=== PATIENT | female | born 1945 | race African-American/Black ===

== ENCOUNTER 2016-08-25 10:34 | Emergency (ER) | payer MEDICARE, MEDICAID ==
[~2016-08-25] VITALS: Ht 167.6 cm; Wt 104.0 kg
[~2016-08-25 10:34] MED LIST: AMLO10TA4 PO; ATEN50TA PO; BENA40TA3 PO; FLUT1DIS3 IH; IBUPROFEN; NAPR60CR2; OMEP40CA34 PO; SIMV40TA2 PO
[2016-08-25 11:17] VITALS: BP 169/63
[2016-08-25 12:30] LABS: GLUCOSE URINE NEGATIVE (NEGATIVE); KETONES URINE NEGATIVE (NEGATIVE); LEUKOCYTE ESTERASE URINE NEGATIVE (NEGATIVE); NITRITE URINE NEGATIVE (NEGATIVE); OCCULT BLOOD URINE NEGATIVE (NEGATIVE); PH URINE 5.5 (4.5-8.0); PROTEIN URINE 2+ (NEGATIVE); SPECIFIC GRAVITY URINE 1.019 (1.005-1.030); UROBILINOGEN URINE 0.2 E.U./dL (0.2-1.0)
[2016-08-25 12:31] LABS: CLARITY URINE CLOUDY (CLEAR); COLOR URINE YELLOW (YELLOW)
[2016-08-25 12:40] LABS: BACTERIA URINE TRACE; HYALINE CASTS URINE 0-5 /lpf; RBC URINE 0-2 /hpf (0-2); SQUAMOUS EPITHELIAL CELL URINE FEW /lpf (RARE/1+); WBC URINE 0-2 /hpf (0-2)
== END 2016-08-25 13:27 | disposition home or self-care (01) ==
LOC: ER 12:38
DX: R80.9 Proteinuria, unspecified (principal); M54.5 Low back pain; E78.00 Pure hypercholesterolemia, unspecified; I10 Essential (primary) hypertension; Z79.1 Long term (current) use of non-steroidal anti-inflammatories (NSAID); Z79.899 Other long term (current) drug therapy
CPT/HCPCS: 81001; 99283

== ENCOUNTER 2019-04-07 07:12 | Inpatient (IN) | payer MEDICARE, MEDICAID ==
[~2019-04-07] VITALS: Ht 167.6 cm; Wt 99.8 kg
[~2019-04-07 07:12] MED LIST changes: -BENA40TA3 PO; +BENA40TA9 PO
[2019-04-07] MEDS ORDERED: ASPIRIN 81MG TABLET PO ONE (08:30)
[2019-04-07 08:46] LABS: BASOPHILS % 0.8 % (0.0-2.0); EOSINOPHILS % 3.8 % (0.0-5.0); HEMATOCRIT. 39.7 % (36.0-48.0); HEMOGLOBIN. 12.6 g/dL (12.0-16.0); LYMPHOCYTES % 25.8 % (20.0-50.0); MEAN CORPUSCULAR HEMOGLOBIN 27.8 pg (28.0-32.0); MEAN CORPUSCULAR VOLUME 87.9 fL (81.0-99.0); MEAN PLATELET VOLUME 11.3 fl (7.4-10.4); MONOCYTES % 7.1 % (2.0-8.0); NEUTROPHILS % 62.5 % (40.0-76.0); PLATELET 208 x1000/uL (130-400); RED BLOOD CELL COUNT 4.52 mill/uL (4.2-5.4); RED CELL DISTRIBUTION WIDTH 15.4 % (11.6-14.6)
[2019-04-07 09:03] LABS: CHLORIDE 107 mEq/L (98-107)
[2019-04-07] MEDS ORDERED: IOHEXOL-350 100 ML BOTTLE ONE (11:07)
[2019-04-07] MEDS ORDERED: ONDANSETRON HCL 4MG/2ML INJ IV PRN (14:00)
[2019-04-07] MEDS ORDERED: DIPHENHYDRAMINE 50MG/ML VIAL IV PRN (14:00)
[2019-04-07] MEDS ORDERED: CLONIDINE 0.1MG TABLET PO PRN (14:00)
[2019-04-07] MEDS ORDERED: DOCUSATE SODIUM 100MG CAPSULE PO PRN (14:00)
[2019-04-07] MEDS ORDERED: MAGNESIUM/ALUMINUM HYDROXIDE/SIMETHICONE 30ML UDC PO PRN (14:00)
[2019-04-07] MEDS ORDERED: LORAZEPAM 0.5MG TABLET PO PRN (14:00)
[2019-04-07] MEDS ORDERED: NA PHOS,M-B/NA PHOS,DI-BA ENEMA 118ML PR PRN (14:00)
[2019-04-07] MEDS ORDERED: ACETAMINOPHEN 650MG SUPP PR PRN (14:00)
[2019-04-07] MEDS ORDERED: ACETAMINOPHEN 325MG TABLET PO PRN (14:00)
[2019-04-07] MEDS ORDERED: GUAIFENESIN 200MG/10ML SUGAR FREE UDC PO PRN (14:00)
[2019-04-07] MEDS ORDERED: IPRATROPIUM/ALBUTEROL 0.5-3(2.5)MG/3ML NEB NEB PRN (14:00)
[2019-04-07 15:00] VITALS: BP 190/79
[2019-04-07] MEDS: AMLODIPINE 5MG TABLET PO SCH (15:24)
[2019-04-07] MEDS: HYDRALAZINE HCL 50MG TABLET PO SCH ×2 (15:24→20:49)
[2019-04-07 15:29] LABS: BG BASE EXCESS 1.4 mmol/L (-2.0-2.0); BG CARBOXYHEMOGLOBIN 0.6 % (0.5-1.5); BG DEOXYHEMOGLOBIN 3.3 % (0.0-5.0); BG FRACTION INSPIRED OXYGEN 21; BG HCO3 ACT 25.9 mmol/L (22.0-26.0); BG METHEMOGLOBIN 0.3 % (0.0-1.5); BG OXYGEN SATURATION 96.7 % (92.0-98.5); BG OXYHEMOGLOBIN 95.8 % (94.0-97.0); BG PCO2 40.4 mmHg (35.0-45.0); BG PH 7.424 (7.350-7.450); BG PO2 86.2 mmHg (75.0-100.0); BG SAMPLE SITE RIGHT RADIAL; BG TOTAL HEMOGLOBIN 13.2 g/dL (12.0-18.0); BG VENT MODE ROOM AIR
[2019-04-07 17:00] VITALS: BP 156/68
[2019-04-07] MEDS ORDERED: FEBU40TA MT (19:40)
[2019-04-07 20:00] VITALS: BP 142/56
[2019-04-07 20:23] LABS: CREATINE KINASE 93 IU/L (26-192)
[2019-04-07 20:24] LABS: CREATINE KINASE MB FRACTION < 1.0 ng/mL (0.5-3.6)
[2019-04-07] MEDS: ENOXAPARIN 30MG/0.3ML SYR SUBCUT SCH (20:49)
[2019-04-07 23:42] LABS: CREATINE KINASE 94 IU/L (26-192)
[2019-04-07 23:43] LABS: CREATINE KINASE MB FRACTION < 1.0 ng/mL (0.5-3.6)
[2019-04-08] VITALS: BP 145/71
[2019-04-08 04:00] VITALS: BP 152/62
[2019-04-08] MEDS: HYDRALAZINE HCL 50MG TABLET PO SCH (05:33)
[2019-04-08] MEDS: HYDROCODONE/ACETAMINOPHEN 5/325MG TABLET PO PRN ×2 (05:46→14:03)
[2019-04-08] MEDS ORDERED: PANTOPRAZOLE 40MG DR TABLET PO SCH (07:40)
[2019-04-08 07:52] LABS: CHLORIDE 108 mEq/L (98-107)
[2019-04-08 08:00] VITALS: BP 163/66
[2019-04-08 08:00] LABS: LDL CHOLESTEROL 124 mg/dL (5-100)
[2019-04-08 08:01] LABS: HDL CHOLESTEROL 59 mg/dL (40-59)
[2019-04-08 08:03] LABS: T4 FREE 0.95 ng/dL (0.76-1.46)
[2019-04-08 08:04] LABS: BASOPHILS % 0.2 % (0.0-2.0); EOSINOPHILS % 3.7 % (0.0-5.0); HEMATOCRIT. 38.7 % (36.0-48.0); HEMOGLOBIN. 12.5 g/dL (12.0-16.0); LYMPHOCYTES % 23.9 % (20.0-50.0); MEAN CORPUSCULAR HEMOGLOBIN 27.8 pg (28.0-32.0); MEAN CORPUSCULAR VOLUME 86.2 fL (81.0-99.0); MEAN PLATELET VOLUME 11.8 fl (7.4-10.4); NEUTROPHILS % 64.2 % (40.0-76.0); PLATELET 209 x1000/uL (130-400); RED BLOOD CELL COUNT 4.49 mill/uL (4.2-5.4)
[2019-04-08] MEDS ORDERED: ASPIRIN 81MG EC TABLET PO SCH (09:00)
[2019-04-08] MEDS: AMLODIPINE 5MG TABLET PO SCH (09:33)
[2019-04-08] MEDS: ENOXAPARIN 30MG/0.3ML SYR SUBCUT SCH (09:34)
[2019-04-08] MEDS ORDERED: HYDRALAZINE HCL 50MG TABLET PO SCH (11:30)
[2019-04-08 12:00] VITALS: BP 171/71
[2019-04-08] MEDS: HYDRALAZINE HCL 100MG TABLET PO SCH ×2 (13:53→21:09)
[2019-04-08] MEDS: GABAPENTIN 100MG CAPSULE PO SCH ×2 (13:54→17:42)
[2019-04-08 16:00] VITALS: BP 173/60
[2019-04-08 20:00] VITALS: BP 176/68
[2019-04-08] MEDS ORDERED: AMLODIPINE 5MG TABLET PO SCH (21:00)
[2019-04-08] MEDS ORDERED: ATORVASTATIN CALCIUM 10MG TABLET PO SCH (21:00)
== END 2019-04-08 23:10 | disposition home or self-care (01) | DRG 305 ==
LOC: ER 07:29 → ENRESERV 12:27 → SUPCPDRO 13:14 → 7WST 14:21
PROVIDERS: ADMIT Internal Medicine; ATTEND Internal Medicine
DX: I16.0 Hypertensive urgency (principal); K21.9 Gastro-esophageal reflux disease without esophagitis; R07.89 Other chest pain; E66.01 Morbid (severe) obesity due to excess calories; Z68.35 Body mass index [BMI] 35.0-35.9, adult; K59.00 Constipation, unspecified; K30 Functional dyspepsia; F41.9 Anxiety disorder, unspecified; I13.10 Hypertensive heart and chronic kidney disease without heart failure, with stage 1 through stage 4 chronic kidney disease, or unspecified chronic kidney disease; N18.9 Chronic kidney disease, unspecified; R79.89 Other specified abnormal findings of blood chemistry; E78.00 Pure hypercholesterolemia, unspecified; E78.5 Hyperlipidemia, unspecified; H40.9 Unspecified glaucoma; M10.9 Gout, unspecified; N28.1 Cyst of kidney, acquired; Z82.49 Family history of ischemic heart disease and other diseases of the circulatory system; Z87.891 Personal history of nicotine dependence; Z79.899 Other long term (current) drug therapy
CPT/HCPCS: 36415; 36600; 71045; 71275; 80061; 82375; 82550; 82553; 82805; 83880; 84439; 84443; 84484; 84550; 85379; 93005; 93306; 99285; J1650; Q9967

== ENCOUNTER 2021-10-02 11:38 | Inpatient (IN) | payer MEDICARE, MEDICAID ==
[~2021-10-02] VITALS: Ht 162.6 cm; Wt 87.7 kg
[~2021-10-02 11:38] MED LIST changes: -BENA40TA9 PO; +FEBU40TA MT; -IBUPROFEN; -NAPR60CR2; +OMEP40CA20 PO; -OMEP40CA34 PO
[2021-10-02] MEDS ORDERED: ASPIRIN 81MG TABLET PO ONE (12:00)
[2021-10-02 12:36] LABS: BASOPHILS % 0.7 % (0.0-2.0); EOSINOPHILS % 2.1 % (0.0-5.0); HEMATOCRIT. 35.4 % (36.0-48.0); HEMOGLOBIN. 11.3 g/dL (12.0-16.0); LYMPHOCYTES % 19.5 % (20.0-50.0); MEAN CORPUSCULAR HEMOGLOBIN 28.1 pg (28.0-32.0); MEAN CORPUSCULAR VOLUME 87.7 fL (81.0-99.0); MEAN PLATELET VOLUME 11.5 fl (7.4-10.4); MONOCYTES % 6.6 % (2.0-8.0); NEUTROPHILS % 71.1 % (40.0-76.0); PLATELET 205 x1000/uL (130-400); RED BLOOD CELL COUNT 4.04 mill/uL (4.2-5.4); RED CELL DISTRIBUTION WIDTH 15.1 % (11.6-14.6)
[2021-10-02 12:47] LABS: CHLORIDE 108 mEq/L (98-107)
[2021-10-02] MEDS ORDERED: GUAIFENESIN 200MG/10ML SUGAR FREE UDC PO PRN (17:00)
[2021-10-02] MEDS ORDERED: ACETAMINOPHEN 325MG TABLET PO PRN (17:00)
[2021-10-02] MEDS ORDERED: LORAZEPAM 0.5MG TABLET PO PRN (17:00)
[2021-10-02] MEDS ORDERED: MORPHINE SULFATE 2 MG/ML CPJ (NOT FOR IM USE) IV PRN (17:00)
[2021-10-02] MEDS ORDERED: ONDANSETRON HCL 4MG/2ML INJ IV PRN (17:00)
[2021-10-02] MEDS ORDERED: IPRATROPIUM/ALBUTEROL 0.5-3(2.5)MG/3ML NEB NEB PRN (17:00)
[2021-10-02] MEDS ORDERED: ACETAMINOPHEN 650MG SUPP PR PRN (17:00)
[2021-10-02] MEDS ORDERED: HYDROCODONE/ACETAMINOPHEN 5/325MG TABLET PO PRN (17:00)
[2021-10-02] MEDS ORDERED: DOCUSATE SODIUM 100MG CAPSULE PO PRN (17:00)
[2021-10-02] MEDS ORDERED: NA PHOS,M-B/NA PHOS,DI-BA ENEMA 118ML PR PRN (17:00)
[2021-10-02] MEDS ORDERED: MAGNESIUM/ALUMINUM HYDROXIDE/SIMETHICONE 30ML UDC PO PRN (17:00)
[2021-10-02] MEDS ORDERED: DIPHENHYDRAMINE 50MG/ML VIAL IV PRN (17:00)
[2021-10-02] MEDS: SODIUM CHLORIDE 0.45% 1,000 ML IV SCH ×2 (17:57→20:22)
[2021-10-02] MEDS: ENOXAPARIN 40MG/0.4ML SYR SUBCUT SCH (20:22)
[2021-10-02 22:00] VITALS: BP 150/54
[2021-10-03] VITALS: BP 160/69
[2021-10-03] MEDS: FAMOTIDINE 20MG TABLET PO SCH ×2 (00:04→22:08)
[2021-10-03] MEDS: CLONIDINE 0.1MG TABLET PO PRN ×4 (00:04→22:09)
[2021-10-03 00:31] LABS: CREATINE KINASE MB FRACTION 1.8 ng/mL (0.5-3.6)
[2021-10-03 04:00] VITALS: BP 188/96
[2021-10-03] MEDS ORDERED: REGADENOSON 0.4 MG/5 ML IV NR (07:00)
[2021-10-03 07:04] LABS: BASOPHILS % 0.4 % (0.0-2.0); EOSINOPHILS % 2.7 % (0.0-5.0); HEMATOCRIT. 32.4 % (36.0-48.0); HEMOGLOBIN. 10.7 g/dL (12.0-16.0); LYMPHOCYTES % 19.5 % (20.0-50.0); MEAN CORPUSCULAR HEMOGLOBIN 28.7 pg (28.0-32.0); MEAN CORPUSCULAR VOLUME 86.7 fL (81.0-99.0); MEAN PLATELET VOLUME 11.8 fl (7.4-10.4); MONOCYTES % 8.4 % (2.0-8.0); PLATELET 185 x1000/uL (130-400); RED BLOOD CELL COUNT 3.73 mill/uL (4.2-5.4)
[2021-10-03 07:45] LABS: CHLORIDE 109 mEq/L (98-107); CREATINE KINASE 95 IU/L (26-192); CREATINE KINASE MB FRACTION 1.7 ng/mL (0.5-3.6)
[2021-10-03 08:00] VITALS: BP 164/76
[2021-10-03] MEDS: NITROGLYCERIN OINT 1GM/INCH UDPKT TD SCH ×3 (09:12→22:08)
[2021-10-03] MEDS: ASPIRIN 81MG EC TABLET PO SCH (09:12)
[2021-10-03] MEDS: AMLODIPINE 5MG TABLET PO SCH ×2 (09:12→22:07)
[2021-10-03 12:00] VITALS: BP 183/82
[2021-10-03] MEDS ORDERED: NALOXONE HCL 0.4MG/ML VIAL IV PRN (13:00)
[2021-10-03] MEDS: SODIUM CHLORIDE 0.45% 1,000 ML IV SCH ×2 (14:31→23:00)
[2021-10-03 16:00] VITALS: BP 152/78
[2021-10-03] MEDS: ENOXAPARIN 40MG/0.4ML SYR SUBCUT SCH (18:29)
[2021-10-03 20:00] VITALS: BP 183/79
[2021-10-03] MEDS: ATORVASTATIN CALCIUM 10MG TABLET PO SCH (22:06)
[2021-10-04] VITALS: BP 135/58
[2021-10-04 04:00] VITALS: BP 161/71
[2021-10-04] MEDS: NITROGLYCERIN OINT 1GM/INCH UDPKT TD SCH ×3 (06:39→18:03)
[2021-10-04 07:25] LABS: BASOPHILS % 0.6 % (0.0-2.0); EOSINOPHILS % 3.8 % (0.0-5.0); HEMATOCRIT. 32.3 % (36.0-48.0); HEMOGLOBIN. 10.5 g/dL (12.0-16.0); LYMPHOCYTES % 26.3 % (20.0-50.0); MEAN CORPUSCULAR HEMOGLOBIN 28.3 pg (28.0-32.0); MEAN CORPUSCULAR VOLUME 87.1 fL (81.0-99.0); MEAN PLATELET VOLUME 11.3 fl (7.4-10.4); MONOCYTES % 10.7 % (2.0-8.0); NEUTROPHILS % 58.6 % (40.0-76.0); PLATELET 158 x1000/uL (130-400); RED BLOOD CELL COUNT 3.71 mill/uL (4.2-5.4); RED CELL DISTRIBUTION WIDTH 14.6 % (11.6-14.6)
[2021-10-04 08:00] VITALS: BP 199/107
[2021-10-04] MEDS: AMLODIPINE 5MG TABLET PO SCH ×2 (08:27→21:49)
[2021-10-04] MEDS: ASPIRIN 81MG EC TABLET PO SCH (08:27)
[2021-10-04] MEDS: SODIUM CHLORIDE 0.45% 1,000 ML IV SCH ×2 (09:25→21:49)
[2021-10-04] MEDS: CLONIDINE 0.1MG TABLET PO PRN (11:53)
[2021-10-04 12:00] VITALS: BP 207/106
[2021-10-04] MEDS: HYDRALAZINE HCL 50MG TABLET PO SCH ×2 (15:12→21:50)
[2021-10-04 16:00] VITALS: BP 128/52
[2021-10-04] MEDS: ENOXAPARIN 40MG/0.4ML SYR SUBCUT SCH (18:03)
[2021-10-04 20:00] VITALS: BP 169/75
[2021-10-04] MEDS: FAMOTIDINE 20MG TABLET PO SCH (21:49)
[2021-10-04] MEDS: ATORVASTATIN CALCIUM 10MG TABLET PO SCH (21:49)
[2021-10-05] VITALS: BP 175/83
[2021-10-05] MEDS: NITROGLYCERIN OINT 1GM/INCH UDPKT TD SCH ×2 (00:53→06:25)
[2021-10-05] MEDS: CLONIDINE 0.1MG TABLET PO PRN ×2 (00:53→11:35)
[2021-10-05 04:00] VITALS: BP 144/52
[2021-10-05] MEDS: SODIUM CHLORIDE 0.45% 1,000 ML IV SCH (05:00)
[2021-10-05] MEDS: HYDRALAZINE HCL 50MG TABLET PO SCH (06:00)
[2021-10-05 06:42] LABS: BASOPHILS % 0.5 % (0.0-2.0); EOSINOPHILS % 2.7 % (0.0-5.0); HEMOGLOBIN. 10.3 g/dL (12.0-16.0); LYMPHOCYTES % 22.6 % (20.0-50.0); MEAN CORPUSCULAR HEMOGLOBIN 28.8 pg (28.0-32.0); MEAN CORPUSCULAR VOLUME 86.3 fL (81.0-99.0); MEAN PLATELET VOLUME 11.9 fl (7.4-10.4); MONOCYTES % 8.8 % (2.0-8.0); NEUTROPHILS % 65.4 % (40.0-76.0); PLATELET 184 x1000/uL (130-400); RED BLOOD CELL COUNT 3.59 mill/uL (4.2-5.4); RED CELL DISTRIBUTION WIDTH 14.9 % (11.6-14.6)
[2021-10-05] MEDS: AMLODIPINE 5MG TABLET PO SCH (08:04)
[2021-10-05] MEDS: ASPIRIN 81MG EC TABLET PO SCH (08:05)
[2021-10-05 08:06] VITALS: BP 104/62
[2021-10-05] MEDS ORDERED: REGADENOSON 0.4 MG/5 ML IV ONE (08:53)
[2021-10-05 12:00] VITALS: BP 161/79
[2021-10-05] MEDS ORDERED: HYDRALAZINE HCL 25MG TABLET PO SCH (14:00)
[2021-10-05 14:46] VITALS: BP 141/58
== END 2021-10-05 15:31 | disposition home or self-care (01) | DRG 206 ==
LOC: ER 11:38 → 8WST 16:22 → ENRESERV 19:46
PROVIDERS: ADMIT Internal Medicine; ATTEND Internal Medicine
PROC: 4A02XM4 Measurement of Cardiac Total Activity, External Approach (ICD-10-PCS; principal; 2021-10-05)
PROC: 3E033HZ Introduction of Radioactive Substance into Peripheral Vein, Percutaneous Approach (ICD-10-PCS; 2021-10-05)
DX: M94.0 Chondrocostal junction syndrome [Tietze] (principal); I50.30 Unspecified diastolic (congestive) heart failure; I20.9 Angina pectoris, unspecified; D64.9 Anemia, unspecified; E86.0 Dehydration; E78.5 Hyperlipidemia, unspecified; K21.9 Gastro-esophageal reflux disease without esophagitis; M10.9 Gout, unspecified; M19.90 Unspecified osteoarthritis, unspecified site; J45.909 Unspecified asthma, uncomplicated; H40.9 Unspecified glaucoma; E78.00 Pure hypercholesterolemia, unspecified; Z20.822 Contact with and (suspected) exposure to COVID-19; Z79.82 Long term (current) use of aspirin; Z87.891 Personal history of nicotine dependence; I11.0 Hypertensive heart disease with heart failure
CPT/HCPCS: 36415; 71045; 73030; 74018; 78452; 78582; 80048; 80053; 80061; 82550; 82553; 83036; 83880; 84443; 84484; 85025; 85379; 87426; 93005; 93017; 93306; 93970; 97161; 99285; A9500; A9558; J1650; J2785

== ENCOUNTER 2024-11-26 01:35 | Emergency (ER) | payer MEDICARE, MEDICAID ==
[~2024-11-26] VITALS: Ht 162.6 cm; Wt 68.0 kg
[~2024-11-26 01:35] MED LIST changes: +AMLO-905 PO; -AMLO10TA4 PO; +SIMV-345 PO; -SIMV40TA2 PO
[2024-11-26 01:38] VITALS: TEMP 36.8; O2SAT 99
[2024-11-26] MEDS: HYDROCODONE/ACETAMINOPHEN 5/325MG TABLET PO ONE (02:21)
[2024-11-26 03:45] LABS: BASOPHILS % 0.7 % (0.0-2.0); EOSINOPHILS % 3.1 % (0.0-5.0); HEMATOCRIT. 34.2 % (36.0-48.0); HEMOGLOBIN. 11.2 g/dL (12.0-16.0); LYMPHOCYTES % 22.5 % (20.0-50.0); MEAN PLATELET VOLUME 11.0 fl (7.4-10.4); MONOCYTES % 7.1 % (2.0-8.0); NEUTROPHILS % 66.6 % (40.0-76.0); PLATELET 189 x1000/uL (130-400); RED BLOOD CELL COUNT 3.86 mill/uL (4.2-5.4); RED CELL DISTRIBUTION WIDTH 15.5 % (11.6-14.6)
[2024-11-26 03:50] LABS: CREATININE 2.6 mg/dL (0.6-1.0); UREA NITROGEN BLOOD 53.0 mg/dL (9-23)
[2024-11-26 04:07] VITALS: BP 151/74; PULSE 63; RESP 22; O2SAT 94
[2024-11-26] MEDS ORDERED: NAPR-1176 MT (04:27)
== END 2024-11-26 05:41 | disposition home or self-care (01) ==
LOC: ER 01:35
DX: M10.9 Gout, unspecified (principal); M79.672 Pain in left foot; I12.9 Hypertensive chronic kidney disease with stage 1 through stage 4 chronic kidney disease, or unspecified chronic kidney disease; N18.9 Chronic kidney disease, unspecified; J45.909 Unspecified asthma, uncomplicated; E78.00 Pure hypercholesterolemia, unspecified; M19.90 Unspecified osteoarthritis, unspecified site; Z79.51 Long term (current) use of inhaled steroids; Z79.899 Other long term (current) drug therapy; Z79.1 Long term (current) use of non-steroidal anti-inflammatories (NSAID)
CPT/HCPCS: 36415; 73620; 80048; 84550; 85025; 86850; 86900; 99284; A4606

== ENCOUNTER 2024-12-22 14:26 | Emergency (ER) | payer MEDICAID, MEDICARE ==
[~2024-12-22] VITALS: Ht 170.2 cm; Wt 75.0 kg
[~2024-12-22 14:26] MED LIST changes: +NAPR-1176 MT
[2024-12-22 14:29] VITALS: O2SAT 100
[2024-12-22] MEDS ORDERED: HYDROCODONE/ACETAMINOPHEN 5/325MG TABLET PO ONE (15:30)
[2024-12-22 16:32] VITALS: BP 154/74; PULSE 68; RESP 16; TEMP 36.9; O2SAT 100
== END 2024-12-22 16:33 | disposition left against medical advice (07) ==
LOC: ER 14:26
DX: R10.9 Unspecified abdominal pain (principal); E11.9 Type 2 diabetes mellitus without complications; E78.00 Pure hypercholesterolemia, unspecified; I10 Essential (primary) hypertension; J45.909 Unspecified asthma, uncomplicated; M19.90 Unspecified osteoarthritis, unspecified site; Z53.29 Procedure and treatment not carried out because of patient's decision for other reasons; Z79.1 Long term (current) use of non-steroidal anti-inflammatories (NSAID); Z79.51 Long term (current) use of inhaled steroids; Z79.899 Other long term (current) drug therapy
CPT/HCPCS: 99283